=== PATIENT | male | born 1950 | race Caucasian/White ===

== ENCOUNTER 2017-12-02 07:25 | Emergency (ER) | payer MEDICARE ==
[~2017-12-02] VITALS: Ht 177.8 cm; Wt 68.5 kg
[2017-12-02 07:25] VITALS: BP 0/0
[2017-12-02] MEDS ORDERED: AMIODARONE 150 MG/3 ML VIAL IVP ONE ×2 (07:30→07:59)
[2017-12-02] MEDS ORDERED: EPINEPHrine SYRINGE 1 MG/10 ML SYRINGE ONE (07:30)
[2017-12-02] MEDS ORDERED: IV NORMAL SALINE 500 ML BAG ONE (07:30)
--- NOTE | 2017-12-02 07:58 | PHYS DOC ---
Adult General Chief Complaint Chief Complaint: CPR/FULL ARREST HPI HPI Patient is a 67-year-old male brought in by enemas as a CODE BLUE. Apparently at around 6:40 AM or maybe slightly before that the for the patient cry out and then she found him unresponsive. On paramedics arrival the patient was in PEaa, they intubated him orally was an easy airway per their report and the also at the same time initiated ACLS protocol epi CPR with mechanical device etc. he then developed V. fib they shocked him twice in addition he has an internal defibrillator that was shocking him as well intermittently per their report. They also gave amiodarone. er course On arrival to the emergency room at approximately 7:25 AM patient was evaluated by me immediately he was placed in our monitor he was noted to be in PE a and basically a flat line I confirmed endotracheal tube placement with bilateral breath sounds as well as fogging in the tube equal chest rise, bedside ultrasound performed by me did show essentially cardiac standstill. No pericardial effusion was identified. Patient received epinephrine as well as several more minutes of CPR. 7:34 AM reevaluation of pulse reveal normal pulse continued essentially asystole. Given downtime of OUR PATIENT HAD FIXED DILATED PUPILS WE OPTED TO CALL THE CODE AT THIS TIME AND THIS WAS 7:34 AM FAMILY WAS NOTIFIED CONdolences provided. Review of Systems Review of Systems Unable due to acuity of condition Family History Family History History unable due to acuity of condition Physical Exam Physical Exam Constitutional: Obtunded HENT: Normocephalic, atraumatic, bilateral external ears normal, oropharynx moist, no oral exudates, nose normal. []ET tube is in position and the mouth Eyes: Fixed dilated pupils Neck: Normal range of motion, no tenderness, supple, no stridor. [] Cardiovascula no heart sounds there is a different bladder apparently on the left upper chest Lungs & Thorax: Bilateral breath sounds clear to auscultation with bagging Abdomen: Bowel sounds normal, soft, no tenderness, no masses, no pulsatile masses. [] Skin: Warm, dry, no erythema, no rash. [] Extremities: No tenderness, no cyanosis, no clubbing, ROM intact Neurologic: Obtunded EKG EKG [] Radiology/Procedures Radiology/Procedures [] Course & Med Decision Making Course & Med Decision Making Pertinent Labs and Imaging studies reviewed. (See chart for details) []See above for ED course. Patient's case time of was 7:34 AM. Critical care time was 25 minutes exclusive of procedures. for bedside mgmt, discussion with family. Dragon Disclaimer Dragon Disclaimer This electronic medical record was generated, in whole or in part, using a voice recognition dictation system. Departure Departure: Impression: Primary Impression: Cardiac arrest Disposition: 20 Condition: MACIEJ ROLLINS MD Dec 02, 2017 07:58
[2017-12-02] MEDS ORDERED: AMIODARONE 900 MG in IV DEXTROSE 5% 500 ML IV ONE (08:15)
[2017-12-02] MEDS ORDERED: IV NORMAL SALINE 1,000ML 1,000 ML IV ONE (08:15)
== END 2017-12-02 07:34 | disposition expired ==
LOC: ER 07:25 → EDBD 07:25 → ER 07:34
DX: I46.9 Cardiac arrest, cause unspecified (principal)
CPT/HCPCS: 92950; 99285; J0171; J0282; J7040; J7030